=== PATIENT | female | born 1930 | race Caucasian/White ===

== ENCOUNTER 2016-02-27 19:27 | Emergency (ER) | payer MEDICARE, OTHER ==
[2016-02-27 19:39] VITALS: BMI 32.5
--- NOTE | 2016-02-27 19:52 | EDPRACDOC ---
- General Information Chief Complaint: Chest Pain Stated Complaint: CHEST PAIN Time Seen by Provider: 02/27/16 19:43 Information Source: Patient Mode of Arrival: Car Home Medications: Home Medications Cholecalciferol [Vitamin D3 (cholecalciferol)] 2,000 units PO DAILY 12/08/12 Metoprolol Succinate [Toprol Xl] 25 mg PO DAILY 12/08/12 Esomeprazole Mag Trihydrate [Nexium] 40 mg PO DAILY 02/13/13 Levothyroxine Sodium [Synthroid] 75 mcg PO HS 02/13/13 Aspirin [Aspirin EC] 81 mg PO DAILY 12/20/13 Ubidecarenone [Co Q-10] 10 mg PO DAILY 12/20/13 Allergies/Adverse Reactions: Allergies Allergy/AdvReac Type Severity Reaction Status Date / Time codeine [Codeine] Allergy Severe Hives* Verified 02/27/16 20:03 Penicillins Allergy Intermediate Rash-Genera Verified 02/27/16 20:03 lized Sulfa (Sulfonamide Allergy Intermediate Dizziness Verified 02/27/16 20:03 Antibiotics) [Sulfa(Sulfonamide Antibiotics)] meperidine HCl [From Demerol] Allergy Unknown Rash-Genera Verified 02/27/16 20: 03 lized acetaminophen [From Tylenol] Allergy Anaphylaxis Verified 02/27/16 20:03 * - 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 NO N /V/D, NO DIAPHORESIS. PT HAS HX OF CAD, STENTS X 2. Chest Pain Location: Reports: Substernal Pain Radiation: Reports: None Symptoms Occur: Reports: Suddenly, With light exertion Cardiac Risk Factors: Reports: Hyperlipidemia, Hypertension Cardiac History of: Reports: Similar Pain in Past, VT, Cardiac Cath, Stress Test , Stent PE Risk Factors: Reports: None Prehospital Care: Reports: None Pain Came On: Reports: Suddenly Pain Status: Resolved Pain Description: Reports: Tightness Pain Severity: Moderate Pain Worsens With: Reports: Exertion, Breathing Pain Improves With: Reports: Rest Associated Signs and Symptoms: Reports: SOB. Denies: Palpitations, Diaphoretic , Abdominal Pain, Nausea, Vomiting, Calf Pain or Swelling, Chest Rash ED Past Medical History - History Reviewed Yes Nurses notes reviewed and agree except as marked - Patient Medical History Neurological History: Denies: Cerebrovascular Accident, Seizures, Migraine, Dementia Cardiac History: Reports: Coronary Artery Disease (Status post angioplasty), Hypertension, Cardiac Catheterization (2010?), Hypercholesterolemia Respiratory History: Reports: Asthma, COPD, Chronic Bronchitis GI/ History: Reports: Gastroesophageal Reflux, Ulcer (Duodenal ulcer) Musculoskeletal History: Reports: Arthritis Psychological History: Denies: Depression, Anxiety, Schizophrenia, Bipolar Disorder, Substance Use Disorder Systemic History: Reports: Hypothyroidism. Denies: Cancer Surgical History: Reports: Appendectomy, Cholecystectomy, Hysterectomy, Angioplasty, Cardiac Catheterization (2010?) - Family Medical History Reports: Hypertension (sister), Diabetes (mother, father, 2 brothers, sister, daughter, grandaughter), Cancer (father & brother (brain), brother (kidney)), Stroke (mother), Cardiac Disorders (mother, father, brothers) - Social Medical History Smoking Status: Former smoker Social History: Denies: Substance Use Disorder ETOH: None Substance Abuse: None EDM Review of Systems - Review of Systems Constitutional: negative: Chills, Fever Eyes: negative: Blurred Vision, Double Vision Ears: negative: Drainage Throat: negative: Pain Nose: negative: Congestion, Discharge Respiratory: Shortness of Breath. negative: Cough, Wheezing Cardiovascular: Chest Pain. negative: Palpitations Gastrointestinal: negative: Diarrhea, Nausea, Pain, Vomiting Genitourinary: negative: Dysuria, Frequency Neurological: negative: Dizziness, Headache, Numbness, Weakness Musculoskeletal: No Symptoms Reported Integumentary: No Symptoms Reported - Physical Exam Constitutional: Alert (Awake), No apparent distress Oriented to: Time, Person, Place Last recorded Vital Signs: Last Vital Signs Temp 98.0 F 02/27/16 19:36 Pulse 63 02/27/16 19:36 Resp 20 02/27/16 19:36 BP 194/87 H 02/27/16 19:36 Pulse Ox 97 02/27/16 19:36 Oxygen Pulse Oxygen Saturation 97 O2 Device Room Air Oxygen Flow Rate Fraction of Inspired Oxygen ( FIO2) - HEENT Head: Normal ( normocephalic) Eye Exam: Normal (PERRL, EOMI, Sclera white) Oropharynx: Normal (Pharynx:Moist without exudate,Gums-no swelling) Tympanic Membrane: Normal ENT EAC: Normal TMJ: Normal Nose: No Symptoms Reported (septum midline) Neck: Normal (FROM, trachea at midline) - Respiratory/Cardiovascular Respiratory: Normal - CTA (BBS clear to auscultation without adventitious sounds ) Cardiovascular: Normal (RRR without murmur, gallop or rub) - GI Auscultation: Normal (NABS) Palpation: Normal (Soft,No rebound or guarding, non distended) Tenderness: Non tender Peterson's Sign: Negative - Musculoskeletal Back: Normal (Non-Tender) Extremities: Normal (Normal tone, Pulses 2+ No cyanosis or edema, FROM) - Integumentary Skin: Normal, Warm, Dry Lymphatics: Normal (no adenopathy) - Neurologic Memory Impaired: Normal Motor Function: Normal (Normal tone, Pulses 2+ No cyanosis or edema, FROM) Cranial Nerve: Normal (CN II-X11 intact sensation, strength 5/5) Cerebellar: Normal Mood Description: Normal Perception: Normal ED Chest Pain Exam - Respiratory/Cardiovascular Respiratory: Normal - CTA Cardiovascular/Chest: Normal Radial Pulse: Normal Carotid Arteries: Normal Edema: negative: 1+, 2+, 3+, 4+, 5, 6 Chest Palpation: Normal. 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) Patient received Beta Andrea within last 24hrs: Yes - Re-evaluation Re-evaluation 1 Re-evaluation Time: 20:35 (NO COMPLAINTS, NO CP WHILE IN ED, DISCUSSED WITH DR PARMAR, SHE AGREES WITH PLAN TO DISHCARGE) - Results 02/27/16 19:55 02/27/16 19:55 02/27/16 20:35 Laboratory Results - last 24 hr 02/27/16 02/27/16 02/27/16 19:55 19:55 19:55 WBC 5.9 RBC 4.53 Hgb 13.4 Hct 40.0 MCV 88 MCH 29.6 MCHC 33.5 RDW 14.8 H Plt Count 184 MPV 9.1 Neut % (Auto) 47.1 Lymph % (Auto) 39.6 [place] % (Auto) 9.6 Eos % (Auto) 3.1 Baso % (Auto) 0.6 Absolute Neuts (auto) 2.77 Absolute Lymphs (auto) 2.30 PT 10.7 INR 1.0 APTT 22.9 Sodium 143 Potassium 3.8 Chloride 109 H Carbon Dioxide 25 Anion Gap 13 BUN 16 Creatinine 1.00 Estimated GFR (MDRD) 53 L Glucose 109 H Calculated Osmolality 277 Calcium 9.9 Corrected Calcium 10.2 Total Bilirubin 0.4 AST 26 ALT 30 Alkaline Phosphatase 89 Troponin I < 0.01 [id number] Pept 535 Total Protein 6.5 Albumin 3.7 Lipase 310 H - EKG EKG #1 EKG Time: 19:35 -: Yes EKG interpreted by me Rate: bpm: 62 [place]: Normal Rhythm: NSR Block: None Hypertrophy: None ST: Normal Comparison: 12/20/13 (NO CHANGE) Decision Time to Discharge: 20:42 - Departure Disposition: Home Condition: Stable Final Diagnosis: Dyspnea on exertion Instructions: Dyspnea (ED) Education/Counseling Given To: Patient Education/Counseling Given Regarding: Diagnosis, Treatment, Prognosis, Follow Up Referrals: Rusty Cotter MD [Staff Physician] - One Week Additional Instructions: CONTINUE YOUR USUAL MEDICATIONS BEFORE, RETURN TO THE ED FOR ANY WORSENING SYMPTOMS OR CONCERNS.
[2016-02-27] MEDS ORDERED: SODIUM CHLORIDE 0.9% 10 ML FLUSH FLUSH PRN (19:53)
[2016-02-27 20:05] LABS: AUTOMATED BASOPHIL 0.6 % (0-2); AUTOMATED EOSINOPHIL 3.1 % (0-5); AUTOMATED LYMPH 39.6 % (17-44); AUTOMATED MONOCYTE 9.6 % (3-10); AUTOMATED NEUTROPHIL 47.1 % (45-76); MPV 9.1 fL (7.4-10.4)
--- NOTE | 2016-02-27 20:13 | DIRPT ---
CLINICAL DATA: Chest pain, substernal chest tightness off and on since walking in cold air today, shortness of breath with exertion, history coronary artery disease post stenting, asthma, COPD, hypertension EXAM: PORTABLE CHEST 1 VIEW COMPARISON: Portable exam 2001 hours compared to 12/25/2013 FINDINGS: Minimal enlargement of cardiac silhouette. Calcified tortuous thoracic aorta. Slight pulmonary vascular congestion. No acute edema, consolidation, pleural effusion or pneumothorax. Bones demineralized. IMPRESSION: Enlargement of cardiac silhouette with pulmonary vascular congestion. No acute abnormalities. Electronically Signed By: Alvin Cates M.D. On: 02/27/2016 20:11
[2016-02-27 20:14] LABS: PARTIAL THROMB. TIME 22.9 SEC (22-35)
[2016-02-27 20:17] LABS: BLOOD UREA NITROGEN 16 MG/DL (7-17); CALC CORRECTED 10.2 MG/DL (8.4-10.2); CALCIUM 9.9 MG/DL (8.4-10.2); CALCULATED OSMOLALITY 277 MOs/Kg (270-290); CHLORIDE 109 mEq/L (98-107); GLUCOSE 109 MG/DL (70-99); SODIUM LEVEL 143 mEq/L (137-146); TOTAL PROTEIN 6.5 G/DL (6.3-8.2)
[2016-02-27 21:04] VITALS: BP 181/78; PULSE 60; TEMP 98.1
== END 2016-02-27 21:02 | disposition home or self-care (01) ==
LOC: ED 19:27
DX: R06.00 Dyspnea, unspecified (principal); R07.89 Other chest pain
CPT/HCPCS: 36415; 71010; 80053; 83690; 83880; 84484; 85025; 85610; 85730; 93005; 99284